=== PATIENT | female | born 1950 | race African-American/Black ===

== ENCOUNTER 2018-10-15 03:01 | Emergency (ER) | payer MEDICARE, MEDICAID ==
[~2018-10-15] VITALS: Ht 170.2 cm; Wt 80.0 kg
[~2018-10-15 03:01] MED LIST: GABA-529 PO; HYDR12.54 PO; LOSA50TA20 PO; TEMA15CA PO
[2018-10-15] MEDS ORDERED: TETRACAINE 0.5% OPHTH DROPS 4ML RIGHTEYE ONE (07:30)
[2018-10-15] MEDS ORDERED: KETOROLAC 30MG/ML VIAL IV ONE (07:30)
[2018-10-15] MEDS ORDERED: FLUORESCEIN SODIUM 1MG/STRIP RIGHTEYE ONE (08:45)
[2018-10-15 15:32] VITALS: BP 161/85
== END 2018-10-15 15:34 | disposition home or self-care (01) ==
LOC: ER 03:01
DX: S00.11XA Contusion of right eyelid and periocular area, initial encounter (principal); S20.211A Contusion of right front wall of thorax, initial encounter; S40.021A Contusion of right upper arm, initial encounter; S80.12XA Contusion of left lower leg, initial encounter; I10 Essential (primary) hypertension; Z79.899 Other long term (current) drug therapy; Y08.89XA Assault by other specified means, initial encounter; Y93.89 Activity, other specified; Y92.89 Other specified places as the place of occurrence of the external cause; Y99.8 Other external cause status
CPT/HCPCS: 70450; 70486; 71101; 72125; 73030; 73502; 73552; 93005; 96374; 99284; J1885